=== PATIENT | male | born 1960 | race African-American/Black ===

== ENCOUNTER 2023-01-13 12:30 | Emergency (ER) | payer BC ==
[~2023-01-13] VITALS: Ht 182.9 cm; Wt 111.1 kg
[2023-01-13 12:45] VITALS: O2SAT 100
== END 2023-01-13 13:45 | disposition home or self-care (01) ==
LOC: FSED 12:47
DX: M25.531 Pain in right wrist (principal); M25.431 Effusion, right wrist; I10 Essential (primary) hypertension; E11.9 Type 2 diabetes mellitus without complications; E78.5 Hyperlipidemia, unspecified; I50.9 Heart failure, unspecified
CPT/HCPCS: 99282